=== PATIENT | male | born 1990 | race Two or more races ===

== ENCOUNTER 2023-03-26 12:43 | Emergency (ER) | payer MEDICAID, OTHER ==
[~2023-03-26] VITALS: Ht 180.3 cm; Wt 131.0 kg
[2023-03-26 12:57] VITALS: BP 173/98; PULSE 93; RESP 18; O2SAT 100
[2023-03-26 14:08] LABS: Basophils # (auto) 0 10 ^3/uL (0-0.2); Basophils % (auto) 0.5 % (0.0-2.0); Eosinophils # (auto) 0.1 10 ^3/uL (0-0.8); Eosinophils % (auto) 1.4 % (0.0-7.0); Hematocrit 38.7 % (41.0-53.0); Hemoglobin 13.5 g/dL (13.5-17.5); Lymphocytes # (auto) 1.5 10 ^3/uL (0.4-5.4); Lymphocytes % (auto) 20.1 % (10.0-50.0); Mean Corpuscular Hemoglobin 30.6 pg (28.0-32.0); Mean Corpuscular Hgb Conc. 34.9 g/dL (32.0-36.0); Mean Corpuscular Volume 87.7 fL (80.0-100.0); Monocytes # (auto) 0.6 10 ^3/uL (0-1.3); Monocytes % (auto) 8.1 % (0.0-12.0); Neutrophils # (auto) 5.4 10 ^3/uL (1.6-8.6); Neutrophils % (auto) 69.9 % (37.0-80.0); Red Blood Cells 4.41 10^6/uL (4.5-5.90); Red Cell Distribution Width 12.9 % (11.8-14.3); White Blood Cell 7.7 10^3/uL (4.4-10.8)
[2023-03-26 14:15] LABS: Albumin 2.8 g/dL (3.4-5.0); Potassium 4.4 mmol/L (3.5-5.1)
[2023-03-26 14:19] LABS: BUN/Creatinine Ratio 11.5 (10.0-20.0); Bilirubin, Total 1.5 mg/dL (0.2-1.0); Total Protein 6.8 g/dL (6.4-8.2)
[2023-03-26] MEDS ORDERED: InsuLIN REG 1unit/0.01ml Soln (100units/ml) IV ONE (14:30)
[2023-03-26] MEDS ORDERED: CLIN300C70 PO (14:37)
[2023-03-26] MEDS ORDERED: DOXY-286 PO (14:37)
[2023-03-26] MEDS ORDERED: LISI20TA56 PO (14:59)
== END 2023-03-26 16:02 | disposition home or self-care (01) ==
LOC: ER 12:43
DX: L02.212 Cutaneous abscess of back [any part, except buttock and flank] (principal); E11.9 Type 2 diabetes mellitus without complications; Z79.2 Long term (current) use of antibiotics
CPT/HCPCS: 36415; 80053; 82962; 85025; 96372; 99283; J1815

== ENCOUNTER 2023-04-16 12:54 | Inpatient (IN) | payer MEDICAID ==
[~2023-04-16] VITALS: Ht 180.3 cm; Wt 131.0 kg
[~2023-04-16 12:54] MED LIST: CLIN300C70 PO; DOXY-286 PO; LISI20TA56 PO
[2023-04-16] MEDS ORDERED: SODIUM CHLORIDE 0.9% 1,000 ML IV ONE (16:00)
[2023-04-16] MEDS: ONDANSETRON HCL 4 MG/2 ML VIAL IV ONE ×2 (16:00→20:22)
[2023-04-16 16:29] LABS: Basophils # (auto) 0 10 ^3/uL (0-0.2); Basophils % (auto) 0.3 % (0.0-2.0); Eosinophils # (auto) 0.1 10 ^3/uL (0-0.8); Eosinophils % (auto) 0.6 % (0.0-7.0); Hematocrit 40.1 % (41.0-53.0); Hemoglobin 14.4 g/dL (13.5-17.5); Lymphocytes # (auto) 1.5 10 ^3/uL (0.4-5.4); Lymphocytes % (auto) 15.4 % (10.0-50.0); Mean Corpuscular Hemoglobin 30.4 pg (28.0-32.0); Mean Corpuscular Hgb Conc. 35.9 g/dL (32.0-36.0); Mean Corpuscular Volume 84.8 fL (80.0-100.0); Monocytes # (auto) 0.5 10 ^3/uL (0-1.3); Neutrophils # (auto) 7.5 10 ^3/uL (1.6-8.6); Neutrophils % (auto) 78.7 % (37.0-80.0); Red Blood Cells 4.73 10^6/uL (4.5-5.90); Red Cell Distribution Width 13.1 % (11.8-14.3); White Blood Cell 9.6 10^3/uL (4.4-10.8)
[2023-04-16 16:51] LABS: Alanine Aminotransferase 28 U/L (7-40); Alkaline Phosphatase 74 U/L (46-116); Anion Gap 5.6 (5-15); Blood Urea Nitrogen 16 mg/dL (9-23); Calcium 9.1 mg/dL (8.7-10.4); Carbon Dioxide 26.4 mmol/L (20-30); Chloride 102 mmol/L (98-107); Glucose 326 mg/dL (74-106); Potassium 4.1 mmol/L (3.5-5.1); Sodium 134 mmol/L (136-145)
[2023-04-16 16:52] LABS: Albumin 3.9 g/dL (3.2-4.8); Aspartate Aminotransferase 12 U/L (13-40); Bilirubin, Total 2.3 mg/dL (0.2-1.0); Total Protein 6.6 g/dL (5.7-8.2)
[2023-04-16] MEDS ORDERED: InsuLIN REG 1unit/0.01ml Soln (100units/ml) IV ONE (17:30)
[2023-04-16] MEDS ORDERED: AMPICILLIN & SULBACTAM SODIUM 3 GM in SODIUM CHL 0.9% 100 ML IV SCH (19:15)
[2023-04-16 19:30] VITALS: PULSE 84; RESP 15; O2SAT 99
[2023-04-16 20:53] LABS: Urine Bacteria NONE SEEN /hpf (None Seen); Urine Blood 1+ /uL (Negative); Urine Clarity Clear (Clear); Urine Color Yellow (Yellow); Urine Hyaline Cast FEW /lpf (0 - 2); Urine Protein, UAD 3+ (Negative); Urine Specific Gravity 1.018 (1.001-1.035); Urine Sperm PRESENT /hpf (None Seen); Urine Urobilinogen Normal (Negative); Urine WBC 5 /hpf (0 - 3)
[2023-04-16] MEDS ORDERED: ONDANSETRON HCL 4 MG/2 ML VIAL IV PRN (21:15)
[2023-04-16] MEDS ORDERED: ACETAMINOPHEN 325 MG TAB PO PRN (21:15)
[2023-04-16] MEDS ORDERED: TEMAZEPAM 15 MG CAP PO PRN (21:15)
[2023-04-16] MEDS ORDERED: DEXTROSE (50%) 50ML SYRG IV PRN (21:15)
[2023-04-16] MEDS: CLINDAMYCIN 600MG IV 50 ML IV SCH (22:31)
[2023-04-16] MEDS ORDERED: hydrALAZINE HCL 20 MG/ML VL IV ONE (23:45)
[2023-04-17] MEDS: ACCU-CHEK COMFORT CURVE STRIP VI SCH ×5 (00:05→21:54)
[2023-04-17] MEDS: InsuLIN REG 1unit/0.01ml Soln (100units/ml) SC SCH ×5 (00:09→22:04)
[2023-04-17 05:46] LABS: Basophils # (auto) 0.1 10 ^3/uL (0-0.2); Basophils % (auto) 0.6 % (0.0-2.0); Eosinophils # (auto) 0.1 10 ^3/uL (0-0.8); Eosinophils % (auto) 1.5 % (0.0-7.0); Hematocrit 39.7 % (41.0-53.0); Hemoglobin 13.9 g/dL (13.5-17.5); Lymphocytes # (auto) 1.8 10 ^3/uL (0.4-5.4); Lymphocytes % (auto) 21.2 % (10.0-50.0); Mean Corpuscular Hemoglobin 30.2 pg (28.0-32.0); Mean Corpuscular Hgb Conc. 35.1 g/dL (32.0-36.0); Mean Corpuscular Volume 86.2 fL (80.0-100.0); Monocytes # (auto) 0.6 10 ^3/uL (0-1.3); Neutrophils % (auto) 69.7 % (37.0-80.0); Nucleated Red Blood Cells % 0.1 %; Red Blood Cells 4.61 10^6/uL (4.5-5.90); White Blood Cell 8.6 10^3/uL (4.4-10.8)
[2023-04-17] MEDS: CLINDAMYCIN 600MG IV 50 ML IV SCH (06:01)
[2023-04-17 06:08] LABS: Alanine Aminotransferase 24 U/L (7-40); Alkaline Phosphatase 69 U/L (46-116); Anion Gap 9.7 (5-15); Aspartate Aminotransferase 15 U/L (13-40); BUN/Creatinine Ratio 9.4 (10.0-20.0); Blood Urea Nitrogen 12 mg/dL (9-23); Calcium 9.3 mg/dL (8.7-10.4); Carbon Dioxide 27.3 mmol/L (20-30); Chloride 101 mmol/L (98-107); Potassium 3.4 mmol/L (3.5-5.1); Sodium 138 mmol/L (136-145)
[2023-04-17 06:09] LABS: Bilirubin, Total 2.8 mg/dL (0.2-1.0)
[2023-04-17 06:26] LABS: Glucose 236 mg/dL (74-106)
[2023-04-17] MEDS: HYDROcodone-ACET 5/325MG TAB PO PRN ×2 (07:59→21:07)
[2023-04-17 08:00] VITALS: RESP 15; O2SAT 99
[2023-04-17] MEDS ORDERED: cefTRIAXone 1GM/50ML D5W 50 ML IV SCH (09:00)
[2023-04-17 09:44] VITALS: RESP 15; O2SAT 99
[2023-04-17] MEDS ORDERED: PANTOPRAZOLE 40 MG TAB PO SCH (10:00)
[2023-04-17] MEDS: LISINOPRIL 10 MG TAB PO SCH (10:17)
[2023-04-17] MEDS ORDERED: SOD CHL 0.9%/ KCL 40MEQ 1,000 ML IV ONE (11:00)
[2023-04-17] MEDS ORDERED: VANCOMYCIN PER PHARMACY 0 MG IV SCH (11:00)
[2023-04-17] MEDS ORDERED: DEXTROSE (50%) 50ML SYRG IV PRN (11:00)
[2023-04-17] MEDS: AMPICILLIN & SULBACTAM SODIUM 3 GM in SODIUM CHL 0.9% 100 ML IV SCH ×3 (11:43→23:38)
[2023-04-17] MEDS ORDERED: VANCOMYCIN 1GM/250ML 250 ML IV ONE (12:30)
[2023-04-17 19:32] LABS: INR 0.98 (0.9-1.15); Partial Thromboplastin Time 25.6 SEC (24.5-34.5); Prothrombin Time 10.3 sec (9.3-11.8)
[2023-04-17 21:33] VITALS: PULSE 83; RESP 18; O2SAT 96
[2023-04-17] MEDS ORDERED: INSU1INJ26 SC (21:53)
[2023-04-17] MEDS: VANCOMYCIN 1GM/250ML 250 ML IV SCH (21:54)
[2023-04-18] VITALS (8 sets, daily range): BP systolic 114–181; BP diastolic 60–87; PULSE 0–108; RESP 18–20; TEMP 97.8–98.9; O2SAT 96–100
[2023-04-18] MEDS: AMPICILLIN & SULBACTAM SODIUM 3 GM in SODIUM CHL 0.9% 100 ML IV SCH ×4 (04:29→23:05)
[2023-04-18] MEDS ORDERED: cloNIDine HCL 0.1 MG TAB PO PRN (05:30)
[2023-04-18] MEDS: ACCU-CHEK COMFORT CURVE STRIP VI SCH ×4 (06:21→21:29)
[2023-04-18] MEDS: InsuLIN REG 1unit/0.01ml Soln (100units/ml) SC SCH ×4 (06:22→21:30)
[2023-04-18] MEDS ORDERED: hydrALAZINE HCL 20 MG/ML VL IV ONE (07:00)
[2023-04-18] MEDS: VANCOMYCIN 1GM/250ML 250 ML IV SCH ×2 (08:00→18:24)
[2023-04-18] MEDS ORDERED: ceFAZolin 1GM/50ML 100 ML IV ONE (08:46)
[2023-04-18] MEDS: LISINOPRIL 10 MG TAB PO SCH (10:00)
[2023-04-18] MEDS ORDERED: fentaNYL CITRATE 100 MCG/2 ML VL ONE (10:03)
[2023-04-18] MEDS ORDERED: MEPERIDINE HCL (25 MG/ML) 1ML VIAL ONE (10:03)
[2023-04-18] MEDS ORDERED: PROPOFOL 10 MG/ML 20 ML IV ONE (10:03)
[2023-04-18] MEDS ORDERED: MIDAZOLAM HCL 2MG/2ML 2ml VIAL (1mg/ml) ONE (10:03)
[2023-04-18] MEDS: HYDROcodone-ACET 5/325MG TAB PO PRN (14:53)
[2023-04-18] MEDS ORDERED: ONDANSETRON HCL 4 MG/2 ML VIAL IV ONE (17:43)
[2023-04-18] MEDS ORDERED: INSULIN LANTUS (GLARGINE) 1 /0.01ml (100units/ml) SC SCH (22:00)
[2023-04-19] MEDS: VANCOMYCIN 1GM/250ML 250 ML IV SCH (03:47)
[2023-04-19] MEDS: AMPICILLIN & SULBACTAM SODIUM 3 GM in SODIUM CHL 0.9% 100 ML IV SCH ×2 (04:50→11:57)
[2023-04-19 05:00] VITALS: BP 166/103; PULSE 91; RESP 20; TEMP 98.2; O2SAT 99
[2023-04-19] MEDS ORDERED: INSLANTI SC (06:03)
[2023-04-19] MEDS ORDERED: METF-370 PO (06:03)
[2023-04-19] MEDS ORDERED: BACDST PO (06:03)
[2023-04-19] MEDS ORDERED: HYDR-4902 PO (06:03)
[2023-04-19] MEDS: HYDROcodone-ACET 5/325MG TAB PO PRN ×2 (06:10→11:57)
[2023-04-19] MEDS: ACCU-CHEK COMFORT CURVE STRIP VI SCH ×2 (06:29→11:58)
[2023-04-19] MEDS: InsuLIN REG 1unit/0.01ml Soln (100units/ml) SC SCH ×2 (06:30→12:02)
[2023-04-19 07:56] LABS: Basophils # (auto) 0 10 ^3/uL (0-0.2); Basophils % (auto) 0.3 % (0.0-2.0); Eosinophils # (auto) 0.2 10 ^3/uL (0-0.8); Eosinophils % (auto) 1.8 % (0.0-7.0); Hematocrit 35.5 % (41.0-53.0); Hemoglobin 12.5 g/dL (13.5-17.5); Lymphocytes # (auto) 1.5 10 ^3/uL (0.4-5.4); Lymphocytes % (auto) 18.1 % (10.0-50.0); Mean Corpuscular Hemoglobin 30.1 pg (28.0-32.0); Mean Corpuscular Hgb Conc. 35.3 g/dL (32.0-36.0); Mean Corpuscular Volume 85.4 fL (80.0-100.0); Monocytes # (auto) 0.7 10 ^3/uL (0-1.3); Monocytes % (auto) 8.1 % (0.0-12.0); Neutrophils # (auto) 6.1 10 ^3/uL (1.6-8.6); Neutrophils % (auto) 71.7 % (37.0-80.0); Nucleated Red Blood Cells % 0.1 %; Red Blood Cells 4.16 10^6/uL (4.5-5.90); Red Cell Distribution Width 12.8 % (11.8-14.3); White Blood Cell 8.5 10^3/uL (4.4-10.8)
[2023-04-19 08:00] VITALS: PULSE 84; RESP 19; O2SAT 98
[2023-04-19 08:20] LABS: Chloride 104 mmol/L (98-107); Potassium 4.1 mmol/L (3.5-5.1); Sodium 135 mmol/L (136-145)
[2023-04-19 08:21] LABS: Anion Gap 5.5 (5-15); Calcium 8.8 mg/dL (8.5-10.1); Carbon Dioxide 25.5 mmol/L (20-30)
[2023-04-19 08:26] LABS: BUN/Creatinine Ratio 11.4 (10.0-20.0); Blood Urea Nitrogen 14 mg/dL (9-23); Glucose 276 mg/dL (74-106)
[2023-04-19 09:00] VITALS: BP 137/72; PULSE 84; RESP 19; TEMP 98; O2SAT 98
[2023-04-19] MEDS: LISINOPRIL 10 MG TAB PO SCH (11:58)
[2023-04-19 14:42] VITALS: BP 137/72; PULSE 90; RESP 20; TEMP 97.9; O2SAT 98
== END 2023-04-19 17:44 | disposition home health service (06) | DRG 383 ==
LOC: ER 12:54 → OVERFLOW 21:27 → WEST WING 04-17 21:25
PROVIDERS: ADMIT Nurse Practitioner; ATTEND Nurse Practitioner Acute Care
PROC: 0W9K0ZZ Drainage of Upper Back, Open Approach (ICD-10-PCS; principal; 2023-04-18 10:08)
DX: L02.212 Cutaneous abscess of back [any part, except buttock and flank] (principal); E11.65 Type 2 diabetes mellitus with hyperglycemia; I10 Essential (primary) hypertension; E66.9 Obesity, unspecified; Z79.84 Long term (current) use of oral hypoglycemic drugs; Z79.4 Long term (current) use of insulin; Z68.41 Body mass index [BMI] 40.0-44.9, adult
CPT/HCPCS: 36415; 72128; 80048; 80053; 80202; 81001; 82010; 82565; 82962; 83036; 85025; 85610; 85730; 87040; 87070; 87075; 87081; 87205; G0378; J0690; J0696; J1815; J2250; J2405; J2704; J3490

== ENCOUNTER 2023-07-03 05:30 | Emergency (ER) | payer MEDICAID ==
[~2023-07-03] VITALS: Ht 180.3 cm; Wt 131.8 kg
[~2023-07-03 05:30] MED LIST changes: +BACDST PO; -CLIN300C70 PO; -DOXY-286 PO; +HYDR-4902 PO; +INSLANTI SC; +INSU1INJ26 SC; +METF-370 PO
[2023-07-03 05:52] VITALS: BP 141/102; PULSE 89; RESP 16; O2SAT 100
[2023-07-03] MEDS ORDERED: SODIUM CHLORIDE 0.9% 1,000 ML IV ONE (06:45)
[2023-07-03] MEDS ORDERED: ONDANSETRON HCL 4 MG/2 ML VIAL IV ONE (06:45)
[2023-07-03 06:46] LABS: Alanine Aminotransferase 24 U/L (7-40); Alkaline Phosphatase 75 U/L (46-116); Anion Gap 7 (5-15); Aspartate Aminotransferase 18 U/L (13-40); BUN/Creatinine Ratio 10.2 (10.0-20.0); Blood Urea Nitrogen 16 mg/dL (9-23); Calcium 9.5 mg/dL (8.7-10.4); Carbon Dioxide 29 mmol/L (20-30); Chloride 99 mmol/L (98-107); Glucose 308 mg/dL (74-106); Lipase 90 U/L (12-53); Potassium 4.2 mmol/L (3.5-5.1); Sodium 135 mmol/L (136-145)
[2023-07-03 06:47] LABS: Bilirubin, Total 2.2 mg/dL (0.2-1.0); Total Protein 6.8 g/dL (5.7-8.2)
[2023-07-03 06:49] LABS: Basophils # (auto) 0 10 ^3/uL (0-0.2); Basophils % (auto) 0.3 % (0.0-2.0); Eosinophils # (auto) 0 10 ^3/uL (0-0.8); Eosinophils % (auto) 0.2 % (0.0-7.0); Hematocrit 39.9 % (41.0-53.0); Hemoglobin 14.1 g/dL (13.5-17.5); Lymphocytes # (auto) 1.1 10 ^3/uL (0.4-5.4); Lymphocytes % (auto) 12.4 % (10.0-50.0); Mean Corpuscular Hgb Conc. 35.3 g/dL (32.0-36.0); Mean Corpuscular Volume 84.9 fL (80.0-100.0); Monocytes # (auto) 0.6 10 ^3/uL (0-1.3); Monocytes % (auto) 6.2 % (0.0-12.0); Neutrophils # (auto) 7.3 10 ^3/uL (1.6-8.6); Neutrophils % (auto) 80.9 % (37.0-80.0); White Blood Cell 9.1 10^3/uL (4.4-10.8)
[2023-07-03 07:12] LABS: Urine Bacteria FEW /hpf (None Seen); Urine Blood 2+ /uL (Negative); Urine Clarity Clear (Clear); Urine Color Yellow (Yellow); Urine Hyaline Cast FEW /lpf (0 - 2); Urine Protein, UAD 3+ (Negative); Urine Specific Gravity 1.024 (1.001-1.035); Urine Urobilinogen Normal (Negative); Urine WBC 2 /hpf (0 - 3)
[2023-07-03] MEDS ORDERED: AMOX500C2 PO (09:14)
[2023-07-03] MEDS ORDERED: METR-344 PO (09:14)
== END 2023-07-03 10:50 | disposition left against medical advice (07) ==
LOC: ER 05:30
DX: K80.20 Calculus of gallbladder without cholecystitis without obstruction (principal); I10 Essential (primary) hypertension; E11.9 Type 2 diabetes mellitus without complications; Z79.2 Long term (current) use of antibiotics; Z79.4 Long term (current) use of insulin; Z79.899 Other long term (current) drug therapy
CPT/HCPCS: 36415; 74176; 76705; 80053; 81001; 83690; 85025